=== PATIENT | male | born 1980 | race Native Hawaiian/Other Pacific Islander ===

== ENCOUNTER 2023-06-20 13:28 | Emergency (ER) | payer OTHER, SELFPAY ==
[2023-06-20 13:30] VITALS: BP 112/73; PULSE 79; RESP 18; TEMP 36.4; O2SAT 95
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
[2023-06-20] MEDS: Ibuprofen 600 MG TAB PO (13:48)
[2023-06-20] MEDS: Acetaminophen 325 MG TAB 650 MG PO (13:49)
[2023-06-20] MEDS: Lactated Ringers 1,000 ML 1000 ML IV (14:18)
[2023-06-20] MEDS: MORPHine 4 MG/ML SYR IVP ×2 (14:19→16:16)
--- NOTE | 2023-06-20 14:20 | NUR.NOTE ---
Nursing Note:Pt medicated IVF & IV moprphine as ordered, pt reports pain seems a little worseier than martha
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
[2023-06-20 16:31] VITALS: BP 127/67; PULSE 75; RESP 16; O2SAT 97
--- NOTE | 2023-06-25 11:08 | NUR.NOTE ---
Nursing Note:Accessed patient chart to print provider note to be faxed to [facility] for billing purposes.
== END 2023-06-20 16:35 | disposition home or self-care (01) ==
LOC: ER 16:02
PROVIDERS: Emergency Provider Physician Assistant
DX: S42.002A Fracture of unspecified part of left clavicle, initial encounter for closed fracture (principal); V18.0XXA Pedal cycle driver injured in noncollision transport accident in nontraffic accident, initial encounter
CPT/HCPCS: 96361; 96374; 96376; 99284; 73000; J2270